=== PATIENT | female | born 1965 | race African-American/Black ===

== ENCOUNTER 2019-03-27 03:08 | Emergency (ER) | payer MEDICARE, OTHER ==
[~2019-03-27] VITALS: Ht 182.9 cm; Wt 139.0 kg
[~2019-03-27 03:08] MED LIST: CYCL10TA7 PO; HYDR-3513 PO; HYDR-523 PO; MELO-104 PO; METR-167 PO; SERT100T PO; TRAM50TA PO
[2019-03-27 04:39] LABS: BASOPHILS % 0.7 % (0.0-2.0); EOSINOPHILS % 2.7 % (0.0-5.0); HEMATOCRIT. 39.5 % (36.0-48.0); HEMOGLOBIN. 13.1 g/dL (12.0-16.0); LYMPHOCYTES % 34.3 % (20.0-50.0); MEAN CORPUSCULAR HEMOGLOBIN 30.8 pg (28.0-32.0); MEAN CORPUSCULAR VOLUME 92.6 fL (81.0-99.0); MEAN PLATELET VOLUME 7.7 fl (7.4-10.4); MONOCYTES % 8.3 % (2.0-8.0); PLATELET 298 x1000/uL (130-400); RED BLOOD CELL COUNT 4.27 mill/uL (4.2-5.4); RED CELL DISTRIBUTION WIDTH 15.3 % (11.6-14.6)
[2019-03-27 04:43] LABS: CHLORIDE 110 mEq/L (98-107)
[2019-03-27] MEDS ORDERED: FUROSEMIDE 40MG/4ML VIAL IVP ONE (04:45)
[2019-03-27] MEDS ORDERED: POTASSIUM CHLORIDE 20MEQ TABLET SR PO ONE (07:00)
[2019-03-27] MEDS ORDERED: MORPHINE SULFATE 4 MG/ML CPJ (NOT FOR IM USE) IV ONE (07:00)
[2019-03-27] MEDS ORDERED: KETOROLAC 30MG/ML VIAL IV ONE (07:00)
[2019-03-27] MEDS ORDERED: LORAZEPAM 2MG/ML CPJ IV ONE (07:00)
[2019-03-27 08:04] VITALS: BP 135/87
== END 2019-03-27 08:25 | disposition home or self-care (01) ==
LOC: ER 03:08
DX: R60.0 Localized edema (principal); I11.0 Hypertensive heart disease with heart failure; I50.9 Heart failure, unspecified; J44.9 Chronic obstructive pulmonary disease, unspecified; F17.210 Nicotine dependence, cigarettes, uncomplicated; Z90.49 Acquired absence of other specified parts of digestive tract; Z91.040 Latex allergy status
CPT/HCPCS: 36415; 71045; 80053; 83880; 84484; 85025; 93005; 96374; 96375; 99284; J1885; J1940; J2270

== ENCOUNTER 2022-02-19 23:05 | Emergency (ER) | payer MEDICARE, OTHER ==
[~2022-02-19] VITALS: Ht 172.7 cm; Wt 114.0 kg
[~2022-02-19 23:05] MED LIST changes: +CYCL10TA21 PO; -CYCL10TA7 PO
[2022-02-19] MEDS ORDERED: NITROGLYCERIN 0.4MG TABLET SL SL PRN (23:15)
[2022-02-19] MEDS ORDERED: ASPIRIN 81MG TABLET PO ONE (23:15)
[2022-02-19 23:44] LABS: CHLORIDE 110 mEq/L (98-107)
[2022-02-19 23:47] LABS: BASOPHILS % 0.6 % (0.0-2.0); EOSINOPHILS % 2.4 % (0.0-5.0); HEMATOCRIT. 40.8 % (36.0-48.0); HEMOGLOBIN. 13.4 g/dL (12.0-16.0); LYMPHOCYTES % 47.9 % (20.0-50.0); MEAN CORPUSCULAR HEMOGLOBIN 29.6 pg (28.0-32.0); MEAN CORPUSCULAR VOLUME 90.3 fL (81.0-99.0); MEAN PLATELET VOLUME 7.1 fl (7.4-10.4); MONOCYTES % 10.1 % (2.0-8.0); PLATELET 301 x1000/uL (130-400); RED BLOOD CELL COUNT 4.52 mill/uL (4.2-5.4); RED CELL DISTRIBUTION WIDTH 15.2 % (11.6-14.6)
[2022-02-19 23:55] LABS: ETHANOL BLOOD < 10 mg/dL
[2022-02-20] MEDS ORDERED: ACETAMINOPHEN 500MG TABLET PO NR (00:45)
[2022-02-20 00:57] LABS: *AMPHETAMINES SCREEN URINE NEGATIVE (NEGATIVE); *BARBITURATES SCREEN URINE NEGATIVE (NEGATIVE); *BENZODIAZEPINES SCREEN URINE NEGATIVE (NEGATIVE); *COCAINE SCREEN URINE NEGATIVE (NEGATIVE); CANNABINOID URINE SCREEN NEGATIVE (NEGATIVE); METHADONE URINE SCREEN NEGATIVE (NEGATIVE); OPIATES URINE SCREEN NEGATIVE (NEGATIVE); PHENCYCLIDINE URINE SCREEN NEGATIVE (NEGATIVE)
[2022-02-20 03:26] VITALS: BP 138/81
== END 2022-02-20 03:30 | disposition home or self-care (01) ==
LOC: ER 23:05
DX: R53.1 Weakness (principal); R42 Dizziness and giddiness; J45.909 Unspecified asthma, uncomplicated; I11.0 Hypertensive heart disease with heart failure; I50.9 Heart failure, unspecified; F17.210 Nicotine dependence, cigarettes, uncomplicated; Z90.49 Acquired absence of other specified parts of digestive tract; Z91.040 Latex allergy status
CPT/HCPCS: 36415; 71045; 80053; 80305; 80320; 83880; 84484; 85025; 93005; 99285; G0480

== ENCOUNTER 2023-02-16 19:39 | Emergency (ER) | payer MEDICARE, OTHER ==
[~2023-02-16] VITALS: Ht 182.9 cm; Wt 142.5 kg
[2023-02-16 20:28] LABS: BASOPHILS % 0.4 % (0.0-2.0); EOSINOPHILS % 1.4 % (0.0-5.0); HEMOGLOBIN. 13.5 g/dL (12.0-16.0); LYMPHOCYTES % 35.3 % (20.0-50.0); MEAN CORPUSCULAR HEMOGLOBIN 30.1 pg (28.0-32.0); MEAN CORPUSCULAR VOLUME 91.3 fL (81.0-99.0); MEAN PLATELET VOLUME 7.4 fl (7.4-10.4); MONOCYTES % 10.2 % (2.0-8.0); NEUTROPHILS % 52.7 % (40.0-76.0); PLATELET 301 x1000/uL (130-400); RED BLOOD CELL COUNT 4.49 mill/uL (4.2-5.4); RED CELL DISTRIBUTION WIDTH 15.4 % (11.6-14.6)
[2023-02-16 20:32] LABS: CHLORIDE 109 mEq/L (98-107)
[2023-02-16 20:33] LABS: CLARITY URINE CLOUDY (CLEAR); COLOR URINE YELLOW (YELLOW); KETONES URINE TRACE (NEGATIVE); LEUKOCYTE ESTERASE URINE TRACE (NEGATIVE); NITRITE URINE NEGATIVE (NEGATIVE); OCCULT BLOOD URINE NEGATIVE (NEGATIVE); PROTEIN URINE TRACE (NEGATIVE); SPECIFIC GRAVITY URINE 1.029 (1.005-1.030)
[2023-02-17] MEDS ORDERED: CEPH500C2 MT (00:29)
[2023-02-17 00:30] VITALS: BP 138/75
[2023-02-17] MEDS ORDERED: KETOROLAC 60MG/2ML VIAL IM ONE (00:30)
== END 2023-02-17 01:52 | disposition home or self-care (01) ==
LOC: ER 19:39
DX: N12 Tubulo-interstitial nephritis, not specified as acute or chronic (principal); R07.9 Chest pain, unspecified; J45.909 Unspecified asthma, uncomplicated; I11.0 Hypertensive heart disease with heart failure; I50.9 Heart failure, unspecified; Z90.89 Acquired absence of other organs; Z91.040 Latex allergy status
CPT/HCPCS: 36415; 71045; 74176; 80053; 81003; 83690; 84484; 85025; 93005; 96372; 99285; J1885